=== PATIENT | female | born 1965 | race Caucasian/White ===

== ENCOUNTER 2019-03-05 00:29 | Emergency (ER) | payer BC ==
--- NOTE | 2019-03-05 00:51 | EDM.PDOC ---
ED HPI GENERAL MEDICAL PROBLEM - General Chief Complaint: Lower Extremity Injury/Pain Stated Complaint: SWOLLEN RIGHT ANKLE Time Seen by Provider: 03/05/19 00:48 - History of Present Illness INITIAL COMMENTS - FREE TEXT/NARRATIVE: HISTORY AND PHYSICAL: History of present illness: Patient's 53-year-old white female presents status post right foot and ankle injury that occurred when she is walking her dog this is earlier tonight she denies other trauma or concern Review of systems: As per history of present illness and below otherwise all systems reviewed and negative. Past medical history: As per history of present illness and as reviewed below otherwise noncontributory. Surgical history: As per history of present illness and as reviewed below otherwise noncontributory. Social history: No reported history of drug or alcohol abuse. Family history: As per history of present illness and as reviewed below otherwise noncontributory. Physical exam: HEENT: Atraumatic, normocephalic, pupils reactive, negative for conjunctival pallor or scleral icterus, mucous membranes moist, throat clear, neck supple, nontender, trachea midline. Lungs: Clear to auscultation, breath sounds equal bilaterally, chest nontender. Heart: S1S2, regular, negative for clicks, rubs, or JVD. Abdomen: Soft, nondistended, nontender. Negative for masses or hepatosplenomegaly. Negative for costovertebral tenderness. Pelvis: Stable nontender. Genitourinary: Deferred. Rectal: Deferred. Extremities: Patient is pain swelling and tenderness in the region of her lateral malleolus of the right ankle and dorsal lateral aspect of her right foot CMS neurovascular exam is unremarkable Neuro: Awake, alert, oriented. Cranial nerves II through XII unremarkable. Cerebellum unremarkable. Motor and sensory unremarkable throughout. Exam nonfocal. Diagnostics: X-ray right foot/ankle Therapeutics: To be determined Impression: #1 acute right foot/ankle injury Definitive disposition and diagnosis as appropriate pending reevaluation and review of above. R ankle Pain Score (Numeric/FACES): 10 - Related Data Allergies Allergy/AdvReac Type Severity Reaction Status Date / Time lisinopril Allergy Rash Verified 03/05/19 00:38 Penicillins Allergy Vaginitis Verified 03/05/19 00:38 turkey Allergy Anaphylactic Verified 03/05/19 00:38 Shock Home Meds: Home Meds Adalimumab [Humira Pediatric Crohn's] 40 mg SQ ASDIRECTED 12/05/18 [History] Cholecalciferol (Vitamin D3) [Vitamin D3] 1,000 unit PO DAILY 12/05/18 [History] Folic Acid 1 mg PO DAILY 12/05/18 [History] Losartan Potassium 100 mg PO QAM 12/05/18 [History] Multivitamin [Daily Multiple Vitamin] 1 tab PO DAILY 12/05/18 [History] Past Medical History HEENT History: Reports: Other (See Below) Other HEENT History: wears glasses Cardiovascular History: Reports: Hypertension Genitourinary History: Reports: None [employer] History: Reports: Musculoskeletal History: Reports: RA Neurological History: Reports: Other (See Below) Other Neuro History: hx of motion sickness Endocrine/Metabolic History: Reports: Obesity/BMI 30+ - Infectious Disease History Infectious Disease History: Reports: Chicken Pox - Past Surgical History HEENT Surgical History: Reports: Tonsillectomy Cardiovascular Surgical History: Reports: None Female Surgical History: Reports: Breast Biopsy, Hysterectomy Endocrine Surgical History: Reports: None Neurological Surgical History: Reports: None Musculoskeletal Surgical History: Reports: Other (See Below) Other Musculoskeletal Surgeries/Procedures:: removal of lump from toe Social & Family History - Family History Family Medical History: Noncontributory - Tobacco Use Smoking Status *Q: Never Smoker Second Hand Smoke Exposure: No - Caffeine Use Caffeine Use: Reports: Coffee - Recreational Drug Use Recreational Drug Use: No Review of Systems - Review of Systems Review Of Systems: ROS reveals no pertinent complaints other than HPI. ED EXAM, GENERAL - Physical Exam Exam: See Below (See dictation) Course - Vital Signs Last Recorded V/S: Last Vital Signs Temp 36.3 C 03/05/19 00:36 Pulse 65 03/05/19 00:36 Resp 18 03/05/19 00:36 BP 172/69 H 03/05/19 00:36 Pulse Ox 93 L 03/05/19 00:36 Departure - Departure Time of Disposition: 01:39 Disposition: Home, Self-Care 01 Condition: Good Clinical Impression: Ankle injury - Discharge Information Referrals: Deanna Tamayo NP [Primary Care Provider] - Forms: ED Department Discharge Additional Instructions: The following information is given to patients seen in the emergency department who are being discharged to home. This information is to outline your options for follow-up care. We provide all patients seen in our emergency department with a follow-up referral. The need for follow-up, as well as the timing and circumstances, are variable depending upon the specifics of your emergency department visit. If you don't have a primary care physician on staff, we will provide you with a referral. We always advise you to contact your personal physician following an emergency department visit to inform them of the circumstance of the visit and for follow-up with them and/or the need for any referrals to a consulting specialist. The emergency department will also refer you to a specialist when appropriate. This referral assures that you have the opportunity for followup care with a specialist. All of these measure are taken in an effort to provide you with optimal care, which includes your followup. Under all circumstances we always encourage you to contact your private physician who remains a resource for coordinating your care. When calling for followup care, please make the office aware that this follow-up is from your recent emergency room visit. If for any reason you are refused follow-up, please contact the [facility] emergency department at and asked to speak to the emergency department charge nurse. Gm wrap as discussed Motrin/Tylenol as directed ice elevation and mobilization as discussed follow-up with primary medical doctor and return as needed as discussed
--- NOTE | 2019-03-05 01:10 | CR ---
INDICATION: foot pain TECHNIQUE: Foot radiograph 2 views right COMPARISON: None FINDINGS: Bone: No acute fractures or aggressive bone lesions are identified. Joint: The visualized hindfoot, midfoot, and forefoot joints are unremarkable in appearance. No significant ankle effusion is seen. Soft tissue: Unremarkable. No radiopaque foreign bodies are seen. IMPRESSION: 1. No acute osseous injuries or abnormalities are noted. Dictated by: Manuel Arnett MD @ 03/05/2019 01:09:23 (Electronically Signed)
--- NOTE | 2019-03-05 01:12 | CR ---
Indication: Injury and pain Technique: Right ankle 3 views. Comparison: None Findings: Bones: Alignment is normal. No fractures or bone lesions. Small Achilles heel spur. Joint spaces: Unremarkable. Soft tissues: Prominent lateral soft tissue swelling. Impression: Prominent lateral soft tissue swelling without evidence of fracture. Dictated by Judd Peace MD @ Mar 05 2019 1:08AM Signed by Dr. Judd Peace @ Mar 05 2019 1:09AM
== END 2019-03-05 01:44 | disposition home or self-care (01) ==
LOC: MW.ED 00:29
DX: S99.911A Unspecified injury of right ankle, initial encounter (principal); S99.921A Unspecified injury of right foot, initial encounter; I10 Essential (primary) hypertension; M06.9 Rheumatoid arthritis, unspecified; E66.9 Obesity, unspecified; Z68.41 Body mass index [BMI] 40.0-44.9, adult; Z88.8 Allergy status to other drugs, medicaments and biological substances; Z88.0 Allergy status to penicillin; Z91.018 Allergy to other foods; Z79.899 Other long term (current) drug therapy; X50.1XXA Overexertion from prolonged static or awkward postures, initial encounter; Y93.K1 Activity, walking an animal
CPT/HCPCS: 73610-26-RT; 73610-RT; 73620-26-RT; 73620-RT; 99282; 99283-25